=== PATIENT | female | born 1945 | race Caucasian/White ===

== ENCOUNTER 2018-11-19 10:29 | Day surgery (SDC) | payer MEDICARE ==
[2018-11-19] MEDS ORDERED: PROPOFOL 10 MG/ML VIAL IV ONE (10:30)
[2018-11-19] MEDS ORDERED: LIDOCAINE 2% MDV (20MG/ML) 20ML VIAL IV ONE (10:30)
[2018-11-19] MEDS ORDERED: FENTANYL PF 100MCG/2ML VIAL IV ONE (10:30)
--- NOTE | 2018-11-20 08:31 | Operative Note ---
DATE OF SURGERY: 11/19/2018 OPERATION: ESOPHAGOGASTRODUODENOSCOPY with multiple biopsies. INDICATION: Dysphagia. The patient reports more oropharyngeal or proximal esophageal dysphagia to solids. She denies any issues with liquids. She has had episodes of vomiting after dysphagia episodes. Upper endoscopy is performed at this time for further evaluation. She denies any previous testing either by x-ray or endoscopy. ANESTHESIA: Intravenous sedation was administered by the department of anesthesiology and included Diprivan titrated to effect. PROCEDURE: Following informed consent from this alert individual, including a discussion of the risks and benefits of the procedure and an opportunity for the patient to ask questions, the patient was in the left lateral decubitus position. The Olympus [id number] video endoscope was inserted into the posterior pharynx and esophagus without difficulty. The posterior pharynx appeared to be normal. The proximal esophagus had inlet patches noted. The mid esophagus was endoscopically normal. At the distal esophageal segments, there was a 3-4 mm polyp noted which was removed with biopsy forceps. There was also a circumferential ulcer at the GE junction which had a white base. There was associated stenosis at the GE junction. Biopsies were taken from the GE junction itself. There was a small 2-3 cm hiatal hernia noted as well. The subdiaphragmatic stomach was entered and found to have multiple linear ulcerations predominantly along the greater curvature. Biopsies were taken from this site. The antrum evaluated circumferentially was unremarkable. The pylorus was patent. The duodenal bulb, sweep and descending duodenum were examined in a serial fashion and found to be normal. The endoscope was then withdrawn back into the stomach where retroflexion accomplished following air insufflation again revealed the hiatal hernia and the linear ulcerations described above. After biopsies, the endoscope was then drawn back through the esophagus. Again biopsies were taken from the GE junction and a third set from the polyp which was essentially removed. The mid esophagus was normal. The proximal esophagus likewise was normal. The endoscope was withdrawn. The patient tolerated the procedure well and was returned to the recovery area in stable condition. IMPRESSION: 1. Distal esophageal ulcerations circumferentially noted at the GE junction. Biopsies taken with structuring noted as well. 2. Distal esophageal polyp removed with biopsy forceps. 3. Esophageal inlet patches. 4. Small hiatal hernia. 5. Multiple linear gastric ulcers. RECOMMENDATION: Further recommendations will be forthcoming pending results of pathology obtained today. The patient will be empirically started on Prilosec or omeprazole 20 mg twice daily. She will have recheck endoscopy in 8-10 weeks' time to assess healing and for possible dilatation. Followup will also be with Dr. Jarrett. As always, thank you for allowing me to participate in the care of your patient. CC: Soraida DEWEY
== END 2018-11-19 13:00 | disposition home or self-care (01) ==
LOC: HOP 10:29
PROVIDERS: ATTEND Internal Medicine Gastroenterology
DX: R13.12 Dysphagia, oropharyngeal phase (principal); R13.19 Other dysphagia; K25.9 Gastric ulcer, unspecified as acute or chronic, without hemorrhage or perforation; K22.2 Esophageal obstruction; K44.9 Diaphragmatic hernia without obstruction or gangrene; K20.9 Esophagitis, unspecified; K22.8 Other specified diseases of esophagus
CPT/HCPCS: 43239; 00731; J3010

== ENCOUNTER 2019-02-04 11:31 | Day surgery (SDC) | payer MEDICARE ==
[2019-02-04] MEDS ORDERED: FENTANYL PF 100MCG/2ML VIAL IV ONE (11:32)
[2019-02-04] MEDS ORDERED: PROPOFOL 10 MG/ML VIAL IV ONE (11:32)
[2019-02-04] MEDS ORDERED: LIDOCAINE 2% MDV (20MG/ML) 20ML VIAL IV ONE (11:32)
--- NOTE | 2019-02-06 09:40 | Operative Note ---
OPERATION: ESOPHAGOGASTRODUODENOSCOPY. INDICATION: History of esophageal ulceration with erosive gastritis. The patient returns at this time to check ulcer healing. She has been treated with Prilosec taken each morning. Upper endoscopy is performed at this time to reevaluate for healing. ANESTHESIA: Intravenous sedation was administered by the department of anesthesiology and included Diprivan titrated to effect. PROCEDURE: Following informed consent from this alert individual, including a discussion of the risks and benefits of the procedure and an opportunity for the patient to ask questions, the patient was in the left lateral decubitus position. The Olympus [id number] video endoscope was inserted into the esophagus without resistance. The proximal esophagus had a normal appearance with normal folds and distensibility. The mid and distal esophagus likewise was free from changes. The previously noted ulceration at the distal esophagus had completely healed. There was a 2-3 cm hiatal hernia sac encountered which was free from mucosal changes. The subdiaphragmatic stomach was entered. Retroflexion in the stomach revealed linear erosions at the level of the diaphragm consistent with Jered erosions. The remainder of the stomach was endoscopically normal. The pylorus was patent. The duodenal bulb, sweep, and descending duodenum were examined in a serial fashion and found to be normal as well. The endoscope was then slowly withdrawn and removed from the patient. She tolerated the procedure well and was returned to the recovery area in stable condition. IMPRESSION: 1. Jered erosions noted in the proximal stomach. 2. Completely healed distal esophageal ulcer. 3. Small 2-3 cm hiatal hernia. RECOMMENDATION: The patient was advised to continue with Prilosec taken daily. Her hemoglobin should be followed serially to see if, in fact, she is bleeding from the Jered erosions in the future. Followup will be on as-needed basis. Followup will otherwise be with Dr. Dillard. As always, thank you for allowing me to participate in the care of your patient. CC: SKYE DILLARD D.O. LÁZARO
== END 2019-02-04 12:45 | disposition home or self-care (01) ==
LOC: HOP 11:31
PROVIDERS: ATTEND Internal Medicine Gastroenterology
DX: K20.8 Other esophagitis (principal); Q39.8 Other congenital malformations of esophagus; K22.10 Ulcer of esophagus without bleeding; K44.9 Diaphragmatic hernia without obstruction or gangrene; K31.7 Polyp of stomach and duodenum; R05 Cough
CPT/HCPCS: 71046

== ENCOUNTER 2019-03-30 12:21 | Emergency (ER) | payer MEDICARE ==
[2019-03-30] MEDS ORDERED: IPRATROPIUM/ALBUTEROL (0.5MG/3MG) NEB INH ONE (12:54)
--- NOTE | 2019-03-30 12:54 | Emergency Department Record ---
History of Present Illness - General Chief Complaint: Shortness of breath Stated Complaint: TERRELL Time Seen by Provider: 03/30/19 12:29 Source: Patient, Family (daughters) - History of Present Illness Initial Comments: The patient and her family state that she has not been doing well for some time. She has been gradually decreasing her baseline activity level, such as no longer cooking meals, not cleaning the house as she used to, and this has especially become obvious the past week. Today she was unable to blow dry her hair due to shortness of breath. She also needed to sit down on a chair putting on her makeup because she was too weak and too short of breath to stay standing. She denies weight loss or weight gain. She sleeps with 2 pillows and this is unchanged from her usp pattern of using 2 pillows. She has had chronic swelling of her ankles, the left being larger than the right since she fractured her left ankle as a child. She denies fevers, chills, cough, sore throat, chest pain/pressure/tightness/heaviness. She has been a light smoker for many years, stating she mainly smokes with her daughter when she comes over to visit. She denies calf or leg pain. Had a tender spot behind her knee which has now resolved. She has not had recent blood work. Her PCP is Dr. Jarrett. - Related Data Home Medications Medication Instructions Recorded Confirmed Last Taken No Home Med [NO HOME MEDS] 03/30/19 03/30/19 Unknown Allergies Allergy/AdvReac Type Severity Reaction Status Date / Time NO KNOWN DRUG ALLERGY Allergy Uncoded 12/23/13 10:03 Review of Systems Reviewed: No additional complaints except as noted below Constitutional: Reports: As per HPI. Denies: Chills, Fever, Malaise, Night sweats, Weakness, Weight change Eyes: Reports: As per HPI. Denies: Eye discharge, Eye pain, Photophobia, Vision change ENT: Reports: As per HPI. Denies: Congestion, Dental pain, Ear pain, Epistaxis, Hearing loss, Throat pain Respiratory: Reports: As per HPI. Denies: Cough, Dyspnea, Hemoptysis, Stridor, Wheezes Cardiovascular: Reports: As per HPI. Denies: Arrhythmia, Chest pain, Dyspnea on exertion, Edema, Murmurs, Orthopnea, Palpitations, Paroxysmal nocturnal dyspnea, Rheumatic Fever, Syncope Endocrine: Reports: As per HPI. Denies: Fatigue, Heat or cold intolerance, Polydipsia, Polyuria Gastrointestinal: Reports: As per HPI. Denies: Abdominal pain, Constipation, Diarrhea, Hematemesis, Hematochezia, Melena, Nausea, Vomiting Genitourinary: Reports: As per HPI. Denies: Abnormal menses, Discharge, Dyspareunia, Dysuria, Frequency, Hematuria, Incontinence, Retention, Urgency Musculoskeletal: Reports: As per HPI. Denies: Arthralgia, Back pain, Gout, Joint swelling, Myalgia, Neck pain Skin: Reports: As per HPI. Denies: Bruising, Change in color, Change in hair/nails, Lesions, Pruritus, Rash Neurological: Reports: As per HPI. Denies: Abnormal gait, Confusion, Headache, Numbness, Paresthesias, Seizure, Tingling, Tremors, Vertigo, Weakness Psychiatric: Reports: As per HPI. Denies: Anxiety, Auditory hallucinations, Depression, Homicidal thoughts, Suicidal thoughts, Visual hallucinations Hematological/Lymphatic: Reports: As per HPI. Denies: Anemia, Blood Clots, Easy bleeding, Easy bruising, Swollen glands Past Medical History - SOCIAL HISTORY Smoking Status: Current some day smoker - RESPIRATORY Hx Respiratory Disorders: No - CARDIOVASCULAR Hx Cardio Disorders: No - NEURO Hx Neuro Disorders: No - GI Hx GI Disorders: Yes Hx Irritable Bowel: Yes Hx of Polyps: Yes - Hx Genitourinary Disorders: No - ENDOCRINE Hx Endocrine Disorders: No - MUSCULOSKELETAL Hx Musculoskeletal Disorders: No - PSYCH Hx Psych Problems: No - HEMATOLOGY/ONCOLOGY Hx Hematology/Oncology Disorders: No Physical Exam - General General Appearance: Alert, Oriented x3, Cooperative, No acute distress (mainly comfortable while at rest.) - Head Head exam: Normal inspection - Eye Eye exam: Normal appearance, PERRL, EOMI. negative: Conjunctival injection, Nystagmus Pupils: Normal accommodation - ENT ENT exam: Normal exam, Mucous membranes moist, Normal external ear exam, Normal orophraynx, TM's normal bilaterally Ear exam: Normal external inspection. negative: External canal tenderness Nasal Exam: Normal inspection. negative: Discharge, Sinus tenderness Mouth exam: Normal external inspection, Tongue normal Teeth exam: Normal inspection. negative: Dental caries Throat exam: Normal inspection. negative: Tonsillar erythema, Tonsillar exudate - Neck Neck exam: Normal inspection, Full ROM. negative: Lymphadenopathy, Meningismus, Tenderness - Respiratory Respiratory exam: Normal lung sounds bilaterally, Other (trace JVD while upright.). negative: Respiratory distress - Cardiovascular Cardiovascular Exam: Regular rate, Normal rhythm, Normal heart sounds - GI/Abdominal GI/Abdominal exam: Soft, Normal bowel sounds. negative: Tenderness - Rectal Rectal exam: Deferred - exam: Deferred - Extremities Extremities exam: Normal inspection, Full ROM, Normal capillary refill, Pedal edema (Left greater than right). negative: Calf tenderness, Tenderness - Back Back exam: Reports: Normal inspection, Full ROM. Denies: CVA tenderness (R), CVA tenderness (L), Muscle spasm, Rash noted, Tenderness - Neurological Neurological exam: Alert, CN II-XII intact, Normal gait, Oriented X3, Reflexes normal. negative: Motor sensory deficit - Psychiatric Psychiatric exam: Normal affect, Normal mood - Skin Skin exam: Dry, Intact, Normal color, Warm. negative: Rash Course - Reevaluation(s) Reevaluation #1: Radiologist phoned report of CTA: Large bilateral PE's left greater than right; small left leural effusion, no infarct. This involves the main pulmonary arteries bilaterally and involves all lobes. 03/30/19 15:07 Reevaluation #2: Spoke with patient and family who request [facility] to be site of transfer. Heparin begin with bolus and drip. Patient denies recent surgery, head or other trauma, ulcer history, black stools, or other bleeding problems in the past. 03/30/19 15:09 Reevaluation #3: Discussed with Dr. Wilfrid Ram who accepts patient in transfer for direct admit. 03/30/19 15:13 Medical Decision Making - Management Options MDM Management: Additional Work-up Planned (e.g. ADM/Transfer/OP Study) (Transfer to [facility] to Dr. Ram service) - Data Complexity MDM Data: Labs Ordered and/or Reviewed (BNP 587; D dimer 3.61;), X-Ray Ordered and/or Reviewed (CTA: Large bilateral PE's, left greater than right side, involving all lobes.), EKG Ordered and/or Reviewed (EKG:NSR 74/min, no acute changes, porbable left atrial enlargement, no prior) - Lab Data Result diagrams: 03/30/19 13:00 03/30/19 13:00 - EKG Data -: EKG Interpreted by Me EKG: No Acute Changes Disposition Disposition: Transfer Clinical Impression: Pulmonary embolism, bilateral Disposition: Acute Care Hospital Transfer Return To Work/School Note Provided: No Transfer To: [facility] Reason For Transfer: Bilateral pulmonary emboli Accepting Physician: Dr.A. Ram Time Discussed w/Accepting Physician: 15:14 Condition: (3) Guarded Forms: Patient Portal Access Quality - Quality Measures Quality Measures: N/A - Blood Pressure Screening Does Patient Have Any of the Following: No Blood Pressure Classification: Hypertensive Reading Systolic Measurement: 142 Diastolic Measurement: 69 Screening for High Blood Pressure: < Pre-Hypertensive BP, F/U Documented > [G8950] Pre-Hypertensive Follow-up Interventions: Follow-up with rescreen every year.
[2019-03-30 13:07] LABS: ABSOLUTE NEUTROPHIL COUNT 8.68; BASO % 0.5 % (0-6); GRAN % 78.6 % (47-80); HEMOGLOBIN 12.2 gm/dl (11.6-16.0); LYMPH % 10.3 % (16-45); MEAN CELL VOLUME 86.6 fl (81-97); MEAN CORPUSCULAR HEMOGLOBIN 26.4 pg (27-33); MEAN CORPUSCULAR HGB CONC 30.5 g/dl (32-36); MEAN PLATELET VOLUME 9.7 fl (7.4-10.4); MONO % 9.6 % (0-9); PLATELET COUNT 253 K/uL (130-400); RED BLOOD COUNT 4.62 M/uL (3.80-5.40); RED CELL DISTRIBUTION WIDTH 14.4 % (11.5-14.5)
[2019-03-30 13:21] LABS: BLOOD UREA NITROGEN 15 mg/dL (8-23); CREATININE 0.9 mg/dL (0.5-0.9); EST GLOMERULAR FILTRATION RATE > 60 mL/min; TOTAL PROTEIN 7.3 g/dL (6.6-8.7)
[2019-03-30 13:23] LABS: GLUCOSE,RANDOM 104 mg/dL (74-109)
[2019-03-30 13:26] LABS: ALB/GLOB RATIO 1.4 (1.1-1.8); ALBUMIN 4.2 g/dL (4.0-5.0); ALKALINE PHOSPHATASE 96 U/L (35-104); ALT/SGPT 8 U/L (<33); AST/SGOT 15 U/L (10.0-35.0)
[2019-03-30] MEDS ORDERED: FUROSEMIDE IV 40MG/4ML VIAL IVP ONE (13:55)
[2019-03-30] MEDS ORDERED: HEPARIN SODIUM 1000 UNIT/1 ML 10ML VIAL IVP ONE (14:59)
[2019-03-30] MEDS ORDERED: HEPARIN SODIUM/D5W 25,000 UNITS/500 ML BAG IV SCH (15:00)
[2019-03-30 15:38] LABS: URINE APPEARANCE CLEAR; URINE BILIRUBIN NEGATIVE (NEGATIVE); URINE BLOOD TRACE-I (NEGATIVE); URINE COLOR YELLOW; URINE GLUCOSE (UA) NEGATIVE (NEGATIVE); URINE KETONE 40 mg/dL (NEGATIVE); URINE NITRITE NEGATIVE (NEGATIVE); URINE PROTEIN NEGATIVE (NEGATIVE); URINE UROBILINOGEN 0.2 E.U./dL (0.20 - 1.00)
[2019-03-30 15:44] LABS: URINE LEUKOCYTE ESTERASE TRACE (NEGATIVE)
[2019-03-30 15:45] LABS: URINE BACTERIA NONE SEEN; URINE RBC 0 - 2 (NONE SEEN); URINE WBC 0 - 2 (0-2/hpf)
--- NOTE | 2019-04-01 12:29 | CT ANGIOGRAM REPORT ---
EXAM: CT ANGIOGRAM OF THE CHEST WITH POST PROCESSING HISTORY: SHORTNESS OF BREATH. ELEVATED D-DIMER. TECHNIQUE: Standard CT angiography of the chest was performed with post processing following the bolus administration of 80 ml of Omnipaque 350. Additional coronal and sagittal maximum intensity projection reformatted images were performed on an independent workstation under concurrent supervision. Comparison: None. FINDINGS: There are large emboli within the distal left main pulmonary artery and extending into the left upper and lower lobe pulmonary arterial branches. Large emboli are also noted within the right pulmonary arterial tree involving the upper, lower, and middle lobe pulmonary arterial branches. The left sided emboli are larger than the right. A small left pleural effusion is present. There is mild atelectasis within the posterior left upper lobe. No discrete pulmonary infarct is identified. There is no pneumothorax. There are no acute pulmonary infiltrates. A moderate sized hiatal hernia is present. There is no mediastinal or hilar lymphadenopathy. The chest wall and axillary regions appear normal. There are multiple scattered calcified granulomas within the spleen. Calcified gallstones are also noted. There is no evidence for acute cholecystitis. There is a 3 mm nonobstructing stone within the right kidney. Degenerative changes are present within the spine. Note is also made of mild to moderate coronary artery calcifications. The heart is mildly enlarged. There is no pericardial effusion. IMPRESSION: 1. LARGE BILATERAL PULMONARY EMBOLI, LEFT GREATER THAN RIGHT WITH ASSOCIATED SMALL LEFT PLEURAL EFFUSION. 2. MODERATE SIZED HIATAL HERNIA. 3. CHOLELITHIASIS WITH NO EVIDENCE FOR ACUTE CHOLECYSTITIS. 4. 3 MM NONOBSTRUCTING STONE WITHIN THE RIGHT KIDNEY. 5. ADDITIONAL CHRONIC FINDINGS ABOVE. 6. A PRELIMINARY REPORT OF THESE FINDINGS WAS PHONED TO DR. TERENCE BATISTA AT 2:58 P.M. ON 03/30/19. JOB NUMBER: [id number] [facility]
== END 2019-03-30 15:50 | disposition short-term general hospital (02) ==
LOC: ER 12:21
DX: I26.99 Other pulmonary embolism without acute cor pulmonale (principal); R60.0 Localized edema; R53.1 Weakness; R06.02 Shortness of breath; R79.89 Other specified abnormal findings of blood chemistry; F17.210 Nicotine dependence, cigarettes, uncomplicated
CPT/HCPCS: 71275; 80053; 81001; 83880; 84443; 85025; 85379; 85730; 93005; 93010; 94640; 96365; 96375; 99285; J1940